=== PATIENT | female | born 1940 | race Caucasian/White ===

== ENCOUNTER 2018-02-03 12:38 | Inpatient (IN) | payer OTHER ==
[~2018-02-03] VITALS: Ht 167.6 cm; Wt 77.6 kg
[2018-02-03 12:38] VITALS: BP_SYST 148
[~2018-02-03 12:38] MED LIST: DIAZ10TA PO; HYDR-3610 PO; LEVO500T20 PO; LEVO88TA2 PO; SIMV10TA2 PO
[2018-02-03] MEDS ORDERED: NACL 0.9% 500 ML IV ONE (13:00)
[2018-02-03] MEDS ORDERED: NS 500 ML IV ONE (13:00)
[2018-02-03 13:27] LABS: BASOPHILS # (AUTO) 0.2 K/uL (0.0-0.2); BASOPHILS % (AUTO) 1.8 % (0.0-2.0); EOSINOPHILS # (AUTO) 0.2 K/uL (0.0-0.4); EOSINOPHILS % (AUTO) 1.8 % (0.0-4.0); HEMOGLOBIN 14.4 g/dL (12.0-16.0); LYMPHOCYTES # (AUTO) 4.6 K/uL (1.0-5.5); LYMPHOCYTES % (AUTO) 46.2 % (20.5-51.5); MEAN CORPUSCULAR HEMOGLOBIN 31 pg (27-31); MEAN CORPUSCULAR HGB CONC 34 % (32-36); MEAN CORPUSCULAR VOLUME 93 fL (79.0-98.0); MONOCYTES # (AUTO) 0.7 K/uL (0.0-1.0); MONOCYTES % (AUTO) 7.2 % (1.7-9.3); NEUTROPHILS # (AUTO) 4.3 K/uL (1.8-7.7); PLATELET COUNT (AUTO) 383 K/uL (130-430); RED BLOOD CELL COUNT(AUTO) 4.61 MIL/uL (4.2-6.2); RED CELL DISTRIBUTION WIDTH 12.7 % (9.0-15.0)
[2018-02-03 13:28] LABS: ANION GAP 9 (5-15); CALCIUM 9.5 mg/dL (8.4-11.0); CHLORIDE 106 mmol/L (98-107); CREATININE 0.89 mg/dL (0.55-1.30); GLUCOSE 126 mg/dL (70-99); POTASSIUM 4.6 mmol/L (3.5-5.1); SODIUM SERUM 143 mmol/L (136-145); UREA NITROGEN, BLOOD 13 mg/dL (8-21)
[2018-02-03 13:39] LABS: INR 1.1 (0.8-1.2); PROTHROMBIN TIME 10.8 SECS (9.5-12.5)
[2018-02-03 13:43] LABS: ALANINE AMINOTRANSFERASE 22 U/L (12-78); ALBUMIN 4.3 g/dL (3.4-4.8); ASPARTATE AMINOTRANSFERASE 11 U/L (10-37); TOTAL BILIRUBIN 0.5 mg/dL (0.0-1.0)
[2018-02-03 13:44] LABS: BILIRUBIN,URINE NEGATIVE (NEGATIVE); BLOOD, URINE NEGATIVE (NEGATIVE); CLARITY/URINE CLEAR (CLEAR); COLOR,URINE YELLOW (YELLOW); GLUCOSE,URINE NEGATIVE (NEGATIVE); KETONES,URINE NEGATIVE (NEGATIVE); LEUKOCYTE ESTERASE ,URINE 2+ (NEGATIVE); NITRITE, URINE NEGATIVE (NEGATIVE); PROTEIN URINE NEGATIVE (NEGATIVE); UROBILINOGEN,URINE 0.2 (0.2-1.0)
[2018-02-03 14:02] LABS: BACTERIA,URINE FEW /HPF (None Seen); YEAST,URINE None Seen /HPF (None Seen)
[2018-02-03 14:03] LABS: MUCUS,URINE None Seen /LPF (None Seen)
[2018-02-03] MEDS ORDERED: metroNIDAZOLE 500 mg/NS 100 ML IV ONE (17:15)
[2018-02-03] MEDS ORDERED: METO50TA7 PO (17:30)
[2018-02-03] MEDS ORDERED: BUDE6HFA INH (17:30)
[2018-02-03] MEDS ORDERED: ALBU0.63 NEB (17:30)
[2018-02-03 17:38] VITALS: BP_SYST 162
[2018-02-03] MEDS ORDERED: DIAZEPAM 5 MG TABLET (VALIUM) PO PRN (18:00)
[2018-02-03] MEDS ORDERED: ACETAMINOPHEN 650 MG/20.3 ML UDC PO PRN (18:15)
[2018-02-03 20:00] VITALS: BP_SYST 131
[2018-02-03] MEDS: METOPROLOL SUCCINATE 50 MG TAB.SR.24H (TOPROL XL) PO SCH (20:08)
[2018-02-03] MEDS: SIMVASTATIN 10 MG TABLET PO SCH (20:08)
[2018-02-03] MEDS: POTASSIUM CHLORIDE 10 MEQ in NACL 0.9% 1,000 ML IV SCH (20:11)
[2018-02-04] VITALS (7 sets, daily range): BP systolic 121–162
[2018-02-04] MEDS ORDERED: cefTRIAXone 1 GM IVPB PREMIX 100 ML IV ONE (04:26)
[2018-02-04] MEDS: LEVOTHYROXINE SODIUM 0.088 MG TABLET PO SCH (06:29)
[2018-02-04] MEDS: ALBUTEROL SULFATE 0.083% 2.5 MG/3 ML VIAL.NEB INH SCH ×4 (07:39→19:57)
[2018-02-04 07:43] LABS: BASOPHILS # (AUTO) 0.1 K/uL (0.0-0.2); BASOPHILS % (AUTO) 1.2 % (0.0-2.0); EOSINOPHILS # (AUTO) 0.4 K/uL (0.0-0.4); EOSINOPHILS % (AUTO) 3.7 % (0.0-4.0); HEMATOCRIT 37.7 % (36-48); HEMOGLOBIN 12.9 g/dL (12.0-16.0); LYMPHOCYTES # (AUTO) 4.8 K/uL (1.0-5.5); LYMPHOCYTES % (AUTO) 51.4 % (20.5-51.5); MEAN CORPUSCULAR HEMOGLOBIN 32 pg (27-31); MEAN CORPUSCULAR HGB CONC 34 % (32-36); MEAN CORPUSCULAR VOLUME 94 fL (79.0-98.0); MONOCYTES # (AUTO) 0.9 K/uL (0.0-1.0); NEUTROPHILS # (AUTO) 3.3 K/uL (1.8-7.7); NEUTROPHILS % (AUTO) 34.7 % (40.0-70.0); PLATELET COUNT (AUTO) 306 K/uL (130-430); RED BLOOD CELL COUNT(AUTO) 4.01 MIL/uL (4.2-6.2); RED CELL DISTRIBUTION WIDTH 12.8 % (9.0-15.0); WHITE BLOOD COUNT (AUTO) 9.5 K/uL (4.8-10.8)
[2018-02-04 08:04] LABS: ANION GAP 8 (5-15); CALCIUM 8.7 mg/dL (8.4-11.0); CHLORIDE 110 mmol/L (98-107); CREATININE 0.97 mg/dL (0.55-1.30); FREE T4 (FREE THYROXINE) 0.7 ng/dL (0.6-1.6); GLUCOSE 107 mg/dL (70-99); POTASSIUM 4.2 mmol/L (3.5-5.1); SODIUM SERUM 147 mmol/L (136-145); THYROID STIMULATING HORMONE 1.55 uIu/mL (0.34-4.82); UREA NITROGEN, BLOOD 12 mg/dL (8-21)
[2018-02-04] MEDS: POTASSIUM CHLORIDE 10 MEQ in NACL 0.9% 1,000 ML IV SCH ×2 (09:37→23:30)
[2018-02-04] MEDS: FLUTICASONE/VILANTEROL 1 EACH BLST.W.DEV INH SCH (09:37)
[2018-02-04] MEDS: METOPROLOL SUCCINATE 50 MG TAB.SR.24H (TOPROL XL) PO SCH ×2 (09:38→21:42)
[2018-02-04] MEDS: LACTOBACILLUS RHAMNOSUS GG 1 CAP CAPSULE PO SCH ×2 (12:00→21:41)
[2018-02-04] MEDS ORDERED: LACTOBACILLUS RHAMNOSUS GG 1 CAP CAPSULE PO ONE (12:30)
[2018-02-04] MEDS: metroNIDAZOLE 500 MG TABLET PO SCH ×2 (13:38→21:41)
[2018-02-04] MEDS: SIMVASTATIN 10 MG TABLET PO SCH (21:41)
[2018-02-05 00:28] VITALS: BP_SYST 179
[2018-02-05] MEDS: LEVOTHYROXINE SODIUM 0.088 MG TABLET PO SCH (06:20)
[2018-02-05] MEDS: metroNIDAZOLE 500 MG TABLET PO SCH ×3 (06:20→21:16)
[2018-02-05] MEDS: METOPROLOL SUCCINATE 50 MG TAB.SR.24H (TOPROL XL) PO SCH ×3 (06:22→21:24)
[2018-02-05] MEDS: LACTOBACILLUS RHAMNOSUS GG 1 CAP CAPSULE PO SCH ×2 (06:24→21:16)
[2018-02-05] MEDS: FLUTICASONE/VILANTEROL 1 EACH BLST.W.DEV INH SCH (07:00)
[2018-02-05 12:00] VITALS: BP_SYST 155
[2018-02-05] MEDS ORDERED: PANTOPRAZOLE GRANULES PACKET 40 MG GT ONE (13:15)
[2018-02-05] MEDS ORDERED: COMMUNICATION ORDER XX ONE (15:00)
[2018-02-05 16:00] VITALS: BP_SYST 179
[2018-02-05] MEDS ORDERED: cloNIDine HCL 0.1 MG TABLET PO PRN (17:15)
[2018-02-05 19:45] VITALS: BP_SYST 141
[2018-02-05] MEDS: ALBUTEROL SULFATE 0.083% 2.5 MG/3 ML VIAL.NEB INH SCH (21:00)
[2018-02-05] MEDS: PANTOPRAZOLE GRANULES PACKET 40 MG PO SCH ×2 (21:17→21:25)
[2018-02-05] MEDS: SIMVASTATIN 10 MG TABLET PO SCH (21:17)
[2018-02-06 01:39] VITALS: BP_SYST 120
[2018-02-06 06:00] VITALS: BP_SYST 140
[2018-02-06] MEDS: LEVOTHYROXINE SODIUM 0.088 MG TABLET PO SCH (06:25)
[2018-02-06] MEDS: metroNIDAZOLE 500 MG TABLET PO SCH (06:25)
[2018-02-06] MEDS: FLUTICASONE/VILANTEROL 1 EACH BLST.W.DEV INH SCH (07:00)
[2018-02-06 07:27] LABS: BASOPHILS # (AUTO) 0.1 K/uL (0.0-0.2); BASOPHILS % (AUTO) 1.3 % (0.0-2.0); EOSINOPHILS # (AUTO) 0.3 K/uL (0.0-0.4); EOSINOPHILS % (AUTO) 3.4 % (0.0-4.0); HEMATOCRIT 39.9 % (36-48); HEMOGLOBIN 13.5 g/dL (12.0-16.0); LYMPHOCYTES # (AUTO) 4.1 K/uL (1.0-5.5); LYMPHOCYTES % (AUTO) 42.2 % (20.5-51.5); MEAN CORPUSCULAR HEMOGLOBIN 32 pg (27-31); MEAN CORPUSCULAR HGB CONC 34 % (32-36); MEAN CORPUSCULAR VOLUME 94 fL (79.0-98.0); MONOCYTES # (AUTO) 0.8 K/uL (0.0-1.0); MONOCYTES % (AUTO) 8.5 % (1.7-9.3); NEUTROPHILS # (AUTO) 4.3 K/uL (1.8-7.7); NEUTROPHILS % (AUTO) 44.6 % (40.0-70.0); PLATELET COUNT (AUTO) 329 K/uL (130-430); RED BLOOD CELL COUNT(AUTO) 4.25 MIL/uL (4.2-6.2); RED CELL DISTRIBUTION WIDTH 12.6 % (9.0-15.0); WHITE BLOOD COUNT (AUTO) 9.6 K/uL (4.8-10.8)
[2018-02-06 07:46] LABS: ANION GAP 5 (5-15); CALCIUM 9.1 mg/dL (8.4-11.0); CHLORIDE 107 mmol/L (98-107); CREATININE 1.08 mg/dL (0.55-1.30); GLUCOSE 125 mg/dL (70-99); POTASSIUM 4.9 mmol/L (3.5-5.1); SODIUM SERUM 143 mmol/L (136-145); UREA NITROGEN, BLOOD 16 mg/dL (8-21)
[2018-02-06] MEDS: ALBUTEROL SULFATE 0.083% 2.5 MG/3 ML VIAL.NEB INH SCH ×2 (07:56→11:39)
[2018-02-06 08:00] VITALS: BP_SYST 145
[2018-02-06] MEDS ORDERED: METOPROLOL SUCCINATE 50 MG TAB.SR.24H (TOPROL XL) PO ONE (09:00)
[2018-02-06] MEDS: LACTOBACILLUS RHAMNOSUS GG 1 CAP CAPSULE PO SCH (09:02)
[2018-02-06 09:24] VITALS: BP_SYST 145
[2018-02-06 12:00] VITALS: BP_SYST 144
== END 2018-02-06 10:15 | disposition home health service (06) | DRG 690 ==
LOC: SED 12:38 → SMU 17:01
PROVIDERS: ADMIT Internal Medicine; ATTEND Internal Medicine
DX: N39.0 Urinary tract infection, site not specified (principal); E87.0 Hyperosmolality and hypernatremia; K52.9 Noninfective gastroenteritis and colitis, unspecified; B96.20 Unspecified Escherichia coli [E. coli] as the cause of diseases classified elsewhere; E03.9 Hypothyroidism, unspecified; E78.5 Hyperlipidemia, unspecified; J44.9 Chronic obstructive pulmonary disease, unspecified; Z60.2 Problems related to living alone; J45.909 Unspecified asthma, uncomplicated; K21.9 Gastro-esophageal reflux disease without esophagitis; E78.00 Pure hypercholesterolemia, unspecified; E86.0 Dehydration; F32.9 Major depressive disorder, single episode, unspecified; F41.9 Anxiety disorder, unspecified; I10 Essential (primary) hypertension; Z16.24 Resistance to multiple antibiotics; Z87.891 Personal history of nicotine dependence; Z90.710 Acquired absence of both cervix and uterus; Z88.0 Allergy status to penicillin; Z88.7 Allergy status to serum and vaccine; Z88.8 Allergy status to other drugs, medicaments and biological substances; Z91.041 Radiographic dye allergy status; Z86.73 Personal history of transient ischemic attack (TIA), and cerebral infarction without residual deficits; Z95.0 Presence of cardiac pacemaker; Z90.49 Acquired absence of other specified parts of digestive tract
CPT/HCPCS: 36415; 71045; 76700-TC; 80048; 80053; 81000-TC; 83605; 84439; 84443-TC; 84484; 85025; 85610-TC; 85730-TC; 87040-TC; 87045-TC; 87046; 87086; 89055; 93005; 94760; 96361; 96365; 97110-GP; 97116-GP; 97530-GP; 99285; J0696; J3480; J3490; J7030; J7060; J7613

== ENCOUNTER 2018-02-16 09:28 | Inpatient (IN) | payer OTHER ==
[~2018-02-16] VITALS: Ht 167.6 cm; Wt 77.1 kg
[~2018-02-16 09:28] MED LIST changes: +ALBU0.63 NEB; +BUDE6HFA INH; -HYDR-3610 PO; -LEVO500T20 PO; +METO50TA7 PO
[2018-02-16 09:39] VITALS: BP_SYST 118
[2018-02-16] MEDS ORDERED: NACL 0.9% 1,000 ML IV ONE (10:00)
[2018-02-16 10:35] LABS: BASOPHILS # (AUTO) 0.1 K/uL (0.0-0.2); BASOPHILS % (AUTO) 0.8 % (0.0-2.0); EOSINOPHILS # (AUTO) 0.2 K/uL (0.0-0.4); HEMATOCRIT 43.1 % (36-48); HEMOGLOBIN 14.5 g/dL (12.0-16.0); LYMPHOCYTES # (AUTO) 4.3 K/uL (1.0-5.5); LYMPHOCYTES % (AUTO) 43.8 % (20.5-51.5); MEAN CORPUSCULAR HEMOGLOBIN 31 pg (27-31); MEAN CORPUSCULAR HGB CONC 34 % (32-36); MEAN CORPUSCULAR VOLUME 93 fL (79.0-98.0); MONOCYTES # (AUTO) 0.8 K/uL (0.0-1.0); NEUTROPHILS # (AUTO) 4.4 K/uL (1.8-7.7); NEUTROPHILS % (AUTO) 45.4 % (40.0-70.0); PLATELET COUNT (AUTO) 348 K/uL (130-430); RED BLOOD CELL COUNT(AUTO) 4.63 MIL/uL (4.2-6.2); RED CELL DISTRIBUTION WIDTH 12.6 % (9.0-15.0); WHITE BLOOD COUNT (AUTO) 9.8 K/uL (4.8-10.8)
[2018-02-16 10:46] LABS: BILIRUBIN,URINE NEGATIVE (NEGATIVE); BLOOD, URINE NEGATIVE (NEGATIVE); CLARITY/URINE CLEAR (CLEAR); COLOR,URINE YELLOW (YELLOW); GLUCOSE,URINE NEGATIVE (NEGATIVE); KETONES,URINE NEGATIVE (NEGATIVE); LEUKOCYTE ESTERASE ,URINE TRACE (NEGATIVE); NITRITE, URINE NEGATIVE (NEGATIVE); PROTEIN URINE NEGATIVE (NEGATIVE); UROBILINOGEN,URINE 0.2 (0.2-1.0)
[2018-02-16 10:49] LABS: ANION GAP 7 (5-15); CALCIUM 9.3 mg/dL (8.4-11.0); CHLORIDE 101 mmol/L (98-107); CREATININE 1.15 mg/dL (0.55-1.30); GLUCOSE 119 mg/dL (70-99); POTASSIUM 4.3 mmol/L (3.5-5.1); SODIUM SERUM 139 mmol/L (136-145); UREA NITROGEN, BLOOD 12 mg/dL (8-21)
[2018-02-16 10:53] LABS: ALANINE AMINOTRANSFERASE 20 U/L (12-78); ALBUMIN 4.2 g/dL (3.4-4.8); ASPARTATE AMINOTRANSFERASE 8 U/L (10-37); LIPASE 104 U/L (73-393); TOTAL BILIRUBIN 0.4 mg/dL (0.0-1.0)
[2018-02-16 11:01] LABS: BACTERIA,URINE FEW /HPF (None Seen); MUCUS,URINE None Seen /LPF (None Seen); RBC,URINE 0-3 /HPF (0-3)
[2018-02-16 13:13] VITALS: BP_SYST 147
[2018-02-16] MEDS ORDERED: LEVOFLOXACIN 500 MG/D5W 100 ML IV ONE (13:45)
[2018-02-16] MEDS ORDERED: METOCLOPRAMIDE HCL 10 MG/2 ML VIAL IVP PRN (13:45)
[2018-02-16] MEDS ORDERED: ONDANSETRON HCL 4 MG/2 ML VIAL IVP PRN (13:45)
[2018-02-16 14:26] VITALS: BP_SYST 147
[2018-02-16] MEDS: D5NS 1,000 ML IV SCH ×2 (15:30→15:34)
[2018-02-16] MEDS: metroNIDAZOLE 500 mg/NS 100 ML IV SCH ×2 (16:10→21:14)
[2018-02-16 20:00] VITALS: BP_SYST 119
[2018-02-16 21:29] VITALS: BP_SYST 119
[2018-02-16] MEDS ORDERED: DIAZEPAM 5 MG TABLET (VALIUM) PO PRN (21:30)
[2018-02-17 01:38] VITALS: BP_SYST 141
[2018-02-17] MEDS: D5NS 1,000 ML IV SCH ×2 (05:59→16:15)
[2018-02-17] MEDS: metroNIDAZOLE 500 mg/NS 100 ML IV SCH (06:00)
[2018-02-17] MEDS: LEVOTHYROXINE SODIUM 0.088 MG TABLET PO SCH (07:02)
[2018-02-17 08:00] VITALS: BP_SYST 142
[2018-02-17] MEDS: PSYLLIUM HUSK 1 PKT PACKET PO SCH ×2 (09:00→09:03)
[2018-02-17] MEDS ORDERED: LEVOFLOXACIN 250 MG/D5W 50 ML IV SCH (09:00)
[2018-02-17] MEDS: METOPROLOL SUCCINATE 50 MG TAB.SR.24H (TOPROL XL) PO SCH ×2 (09:03→20:55)
[2018-02-17] MEDS: LACTOBACILLUS RHAMNOSUS GG 1 CAP CAPSULE PO SCH (09:03)
[2018-02-17 12:40] VITALS: BP_SYST 141
[2018-02-17 16:30] VITALS: BP_SYST 144
[2018-02-17] MEDS ORDERED: SIMVASTATIN 10 MG TABLET PO SCH (21:00)
[2018-02-17] MEDS: ALBUTEROL SULFATE 0.083% 2.5 MG/3 ML VIAL.NEB INH PRN (21:11)
[2018-02-17 22:33] VITALS: BP_SYST 154
[2018-02-18 00:38] VITALS: BP_SYST 154
[2018-02-18] MEDS: D5NS 1,000 ML IV SCH (05:35)
[2018-02-18] MEDS: LEVOTHYROXINE SODIUM 0.088 MG TABLET PO SCH (06:11)
[2018-02-18 08:00] VITALS: BP_SYST 145
[2018-02-18] MEDS ORDERED: SIMETHICONE 80 MG TAB.CHEW PO PRN (08:00)
[2018-02-18] MEDS: ALBUTEROL SULFATE 0.083% 2.5 MG/3 ML VIAL.NEB INH PRN (08:05)
[2018-02-18] MEDS: PSYLLIUM HUSK 1 PKT PACKET PO SCH (09:00)
[2018-02-18] MEDS: LACTOBACILLUS RHAMNOSUS GG 1 CAP CAPSULE PO SCH (09:36)
[2018-02-18] MEDS: METOPROLOL SUCCINATE 50 MG TAB.SR.24H (TOPROL XL) PO SCH (09:37)
== END 2018-02-18 10:50 | disposition home or self-care (01) | DRG 392 ==
LOC: SED 09:28 → SMU 12:40
PROVIDERS: ADMIT Internal Medicine Hospice and Palliative Medicine; ATTEND Internal Medicine Hospice and Palliative Medicine
DX: K58.0 Irritable bowel syndrome with diarrhea (principal); I10 Essential (primary) hypertension; E03.9 Hypothyroidism, unspecified; J44.9 Chronic obstructive pulmonary disease, unspecified; E78.00 Pure hypercholesterolemia, unspecified; K58.2 Mixed irritable bowel syndrome; Z90.710 Acquired absence of both cervix and uterus; Z87.440 Personal history of urinary (tract) infections; Z88.7 Allergy status to serum and vaccine; Z90.49 Acquired absence of other specified parts of digestive tract; Z88.1 Allergy status to other antibiotic agents; Z88.0 Allergy status to penicillin; Z88.8 Allergy status to other drugs, medicaments and biological substances; Z79.899 Other long term (current) drug therapy
CPT/HCPCS: 36415; 74021; 80053; 81000-TC; 83690-TC; 85025; 87081; 87177; 87230-TC; 89055; 94640; 94760; 99285; J1956; J3490; J7042; J7613

== ENCOUNTER 2022-06-13 15:02 | Inpatient (IN) | payer OTHER ==
[~2022-06-13] VITALS: Ht 167.6 cm; Wt 68.9 kg
[~2022-06-13 15:02] MED LIST changes: +LEVO-62 PO; +PRED10TA PO; +SIMV-341 PO; -SIMV10TA2 PO
[2022-06-13 15:05] VITALS: BP_SYST 117
--- NOTE | 2022-06-13 15:24 | NUR ---
Patient to ER bed 06 to gown for evaluation. Side rails up.
[2022-06-13 16:11] LABS: BASOPHILS # (AUTO) 0.1 K/uL (0.0-0.2); BASOPHILS % (AUTO) 0.6 % (0.0-2.0); EOSINOPHILS # (AUTO) 0.4 K/uL (0.0-0.4); EOSINOPHILS % (AUTO) 1.9 % (0.0-4.0); HEMATOCRIT 39.8 % (36-48); HEMOGLOBIN 13.4 g/dL (12.0-16.0); LYMPHOCYTES # (AUTO) 3.9 K/uL (1.0-5.5); LYMPHOCYTES % (AUTO) 18.4 % (20.5-51.5); MEAN CORPUSCULAR HEMOGLOBIN 30 pg (27-31); MEAN CORPUSCULAR HGB CONC 34 % (32-36); MEAN CORPUSCULAR VOLUME 89 fL (79.0-98.0); MONOCYTES # (AUTO) 1.5 K/uL (0.0-1.0); MONOCYTES % (AUTO) 6.9 % (1.7-9.3); NEUTROPHILS # (AUTO) 15.2 K/uL (1.8-7.7); NEUTROPHILS % (AUTO) 72.2 % (40.0-70.0); PLATELET COUNT (AUTO) 592 K/uL (130-430); RED BLOOD CELL COUNT(AUTO) 4.49 MIL/uL (4.2-6.2); RED CELL DISTRIBUTION WIDTH 13.4 % (9.0-15.0); WHITE BLOOD COUNT (AUTO) 21.1 K/uL (4.8-10.8)
[2022-06-13 16:19] LABS: ANION GAP 6 (5-15); CALCIUM 11.2 mg/dL (8.4-11.0); CHLORIDE 101 mmol/L (98-107); CREATININE 1.45 mg/dL (0.55-1.30); GLUCOSE 124 mg/dL (70-99); UREA NITROGEN, BLOOD 25 mg/dL (8-21)
[2022-06-13 16:25] LABS: ALANINE AMINOTRANSFERASE 14 U/L (12-78); ALBUMIN 3.5 g/dL (3.4-4.8); AMYLASE 80 U/L (0-100); ASPARTATE AMINOTRANSFERASE 7 U/L (10-37); C-REACTIVE PROTEIN QUANT 6.7 mg/dL (0-0.5); LIPASE 147 U/L (73-393); TOTAL BILIRUBIN 0.3 mg/dL (0.0-1.0)
[2022-06-13] MEDS ORDERED: DOCUSATE SODIUM 100 MG CAPSULE PO PRN (18:00)
[2022-06-13] MEDS ORDERED: MAGNESIUM SULFATE 50 ML IV PRN (18:00)
[2022-06-13] MEDS ORDERED: MORPHINE 2 MG/ML INJ. SYRINGE IVP PRN ×2 (18:00)
[2022-06-13] MEDS ORDERED: POTASSIUM CHLORIDE 20 MEQ TAB.PRT.SR PO PRN (18:00)
[2022-06-13] MEDS ORDERED: ONDANSETRON HCL 4 MG/2 ML VIAL IVP PRN (18:00)
[2022-06-13] MEDS ORDERED: MUPIROCIN 2% TOPICAL OINTMENT 22 GM NS PRN (18:00)
--- NOTE | 2022-06-13 18:11 | NUR ---
PT PRESENT TO ED ACCOMPANIED BY CAREGIVER WITH COMPLAINT OF RIGHT FLANK PAIN. AOX4 GCS [address] PT SELF AMBULATED WITHOUT ASSISTANCE. ED PHYSICIAN EVALUATED PT AT BEDSIDE.
--- NOTE | 2022-06-13 18:13 | NUR ---
Admit bed requested Patient will be admitted to care of . Admitted to MED SURG unit. Diagnosis AYUSH, ABDOMINAL PAIN Inpatient (Yes or No) Y Observation (Yes or No) N Orientation concerns or request close to nursing station (Yes or No) N Covid Status On vent or bipap NO Isolation requirements NO Needs a sitter NO From Home (Yes or if No enter name of facility) YES Requires Dialysis (Yes or No) NO Med Rec Completed (Yes of No) YES
[2022-06-13] MEDS ORDERED: ACETAMINOPHEN 325 MG TABLET PO PRN (18:15)
[2022-06-13] MEDS ORDERED: ALBUTEROL SULFATE 0.083% 2.5 MG/3 ML VIAL.NEB INH ONE (19:15)
[2022-06-13] MEDS ORDERED: IPRATROPIUM BROM 0.5 MG/2.5 ML VIAL.NEB (ATROVENT) INH ONE (19:15)
--- NOTE | 2022-06-13 19:43 | NUR ---
Patient will be admitted to care of MD Ji. Admitted to MED SURG unit. Will go to room 114B. Complete and up to date summary report printed. SBAR report given at bedside to DAVID Foster with opportunity for questions.
[2022-06-13 20:00] VITALS: BP_SYST 141
--- NOTE | 2022-06-13 20:00 | NUR ---
Admission Note Received patient from ER with diagnosis of AYUSH, ABDOMINAL PAIN. Initial Plan of Care discussed-patient verbalized understanding. Oriented to room, call light, pain management and safety.
[2022-06-13 20:47] VITALS: BP_SYST 149
[2022-06-13 20:51] VITALS: BP_SYST 141
--- NOTE | 2022-06-13 20:57 | NUR ---
SPOKE WITH MD MANN MADE AWARE PT IS ANXIOUS ENDORSES SHE NEEDS HER PREDNISONE AND DIAZEPAM MEDICATIONS REORDERED NOTED AND WILL CARRY OUT
[2022-06-13] MEDS: predniSONE 10 MG TABLET PO SCH (22:00)
[2022-06-13] MEDS: METOPROLOL SUCCINATE 50 MG TAB.SR.24H (TOPROL XL) PO SCH (22:37)
[2022-06-13] MEDS: SIMVASTATIN 10 MG TABLET PO SCH (22:38)
[2022-06-13] MEDS: DIAZEPAM 5 MG TABLET (VALIUM) PO PRN (22:38)
[2022-06-13] MEDS: ACETAMINOPHEN 325 MG TABLET PO PRN (22:44)
[2022-06-14] VITALS: BP_SYST 126
--- NOTE | 2022-06-14 00:59 | NUR ---
PT ADMISSION ASSESSMENT COMPLETED PLAN OF CARE REVIEWED PT SKIN DRY AND INTACT PT AMBULATORY PT SOME WHAT WORRIED ABOUT PTOGNOSIS OF CARE PT MADE AWARE MD WOULD ROUND IN MORNING TO GIVE STATUS ON PROGNOSIS AND PLAN OF CARE PT EDUCATED ON ALL MEDICATIONS AND ASSURED NURSING WILL ROUND HOURLY CALL LIGHT PLACED IN REACH AND PT MADE AWRE TO CALL FOR ALL NEEDS UNDERSTANDING VERBALIZED WILL CONTINUE TO MONIOTR AND ASSESS
--- NOTE | 2022-06-14 03:10 | NUR ---
CONSULTATION PAGED/CALLED Reason for Consultation: CELLULITIS Person Who was Notified:MACKNEZIE Consulting Physician: VELASQUEZ Felled Seam Operator Chainstitch Specialty: Ordering Physician: MACKENZIE
--- NOTE | 2022-06-14 03:13 | NUR ---
CONSULTATION PAGED/CALLED Reason for Consultation: ADRENAL MASS Person Who was Notified:ANURAG Consulting Physician: GOKUL Sales Clerk Food Specialty: Ordering Physician: MACKENZIE
[2022-06-14] MEDS: LEVOTHYROXINE SODIUM 0.088 MG TABLET PO SCH (06:25)
[2022-06-14 07:01] LABS: BASOPHILS # (AUTO) 0.1 K/uL (0.0-0.2); BASOPHILS % (AUTO) 0.6 % (0.0-2.0); EOSINOPHILS # (AUTO) 0.1 K/uL (0.0-0.4); EOSINOPHILS % (AUTO) 0.5 % (0.0-4.0); HEMATOCRIT 36.7 % (36-48); HEMOGLOBIN 12.4 g/dL (12.0-16.0); LYMPHOCYTES # (AUTO) 2.9 K/uL (1.0-5.5); MEAN CORPUSCULAR HEMOGLOBIN 30 pg (27-31); MEAN CORPUSCULAR HGB CONC 34 % (32-36); MEAN CORPUSCULAR VOLUME 88 fL (79.0-98.0); MONOCYTES # (AUTO) 0.8 K/uL (0.0-1.0); MONOCYTES % (AUTO) 3.9 % (1.7-9.3); NEUTROPHILS # (AUTO) 16.7 K/uL (1.8-7.7); PLATELET COUNT (AUTO) 527 K/uL (130-430); RED BLOOD CELL COUNT(AUTO) 4.16 MIL/uL (4.2-6.2); RED CELL DISTRIBUTION WIDTH 13.6 % (9.0-15.0); WHITE BLOOD COUNT (AUTO) 20.6 K/uL (4.8-10.8)
[2022-06-14 07:29] LABS: ANION GAP 4 (5-15); CALCIUM 10.2 mg/dL (8.4-11.0); CHLORIDE 101 mmol/L (98-107); GLUCOSE 138 mg/dL (70-99); UREA NITROGEN, BLOOD 24 mg/dL (8-21)
[2022-06-14] MEDS: ALBUTEROL SULFATE 0.083% 2.5 MG/3 ML VIAL.NEB INH SCH ×3 (07:49→19:02)
[2022-06-14] MEDS: BUDESONIDE 0.5 MG/2 ML AMPUL.NEB INH SCH ×2 (07:49→19:19)
--- NOTE | 2022-06-14 07:58 | NUR ---
OPENING NOTE RECEIVED BEDSIDE SBAR FORM PM SHIFT NURSE, PATIENT IS STABLE NO DISTRESS, BED AT LOW POSITION CALL LIGHT IN REACH WILL CONT TO MONITOR PER ORDERS NPO AT THIS TIME.
[2022-06-14 08:01] VITALS: BP_SYST 132
[2022-06-14] MEDS ORDERED: BUDESONIDE/FORMOTEROL 160-4.5 mCg, 6 GM INHALER INH SCH (09:00)
[2022-06-14] MEDS: METOPROLOL SUCCINATE 50 MG TAB.SR.24H (TOPROL XL) PO SCH ×2 (09:00→20:57)
[2022-06-14] MEDS: predniSONE 10 MG TABLET PO SCH ×2 (09:00→20:57)
[2022-06-14] MEDS ORDERED: SODIUM ZIRCONIUM CYCLOSILICATE 10 GM POWD.PACK PO ONE (09:00)
[2022-06-14] MEDS ORDERED: LORazepam 2 MG/ML VIAL IVP ONE (10:00)
--- NOTE | 2022-06-14 11:08 | NUR ---
PATIENT IS TO GO TO MRI NPO, PATIENT ASKED TO CANCELL AND DO TOMORROW SO SHE COULD EAT. PAGED DOCTOR HE STATED NO IT NEED TO BE DONE TODAY, MRI CLOSED TOMORROW. PATIENT ASKED FOR SOMETHING TO CALM NERVE DOWN RECEIVED ORDER FOR ATIVAN 1MG IV PUSH 1 TIME, PATIENT REFUSED MED. PATIENT WAS THEN TAKEN TO MRI, REFUSED TO DO TEST AT THIS TIME. WILL PAGED DOCTOR
[2022-06-14 11:40] VITALS: BP_SYST 133
[2022-06-14] MEDS ORDERED: CALCIUM GLUCONATE 1 GM in NS 100 ML IV ONE (12:00)
--- NOTE | 2022-06-14 12:30 | NUR ---
ROUNDS PATIENT REMAINS STABLE NO DISTRESS CALL LIGHT IN REACH BED AT LOW POSITION FAMILY AT BEDSIDE WILL CONT TO MONITOR PER ORDERS.
--- NOTE | 2022-06-14 12:55 | NUR ---
PATIENT KNOW WHATS TO GO TO MRI, WILL CALL MRI TO SEE IF THEY CAN STILL TAKE HER
[2022-06-14 15:20] VITALS: BP_SYST 126
[2022-06-14 15:33] VITALS: BP_SYST 132
--- NOTE | 2022-06-14 17:25 | NUR ---
change of rn assignment was done , with admitting diagnosis adminal pain aox4 . still npo from magnetic resonance due abdominal aortic aneurysm no complain of pain at this time . nosign and symptoms of respiratory distress . will continue to monitor
--- NOTE | 2022-06-14 18:21 | NUR ---
will endorse to shift lab technician rn for continuity of care
--- NOTE | 2022-06-14 19:35 | NUR ---
INITIAL NOTE AT INITIAL ASSESSMENT, PATIENT IS RESTING IN BED, STABLE, NO SIGNS OF RESPIRATORY DISTRESS. PATIENT VERBALIZES NO PAIN. PLAN OF CARE FOR THE EVENING IS COMMUNICATED WITH PATIENT. CALL LIGHT TEACH BACK IS SUCCESSFUL. BED IS LOCKED, AND AT THE LOWEST LEVEL. FALL AND SAFETY PRECAUTIONS WILL BE IN PLACE THROUGHOUT THE SHIFT.
[2022-06-14 19:40] VITALS: BP_SYST 130
[2022-06-14] MEDS: SIMVASTATIN 10 MG TABLET PO SCH (20:57)
[2022-06-14] MEDS: DIAZEPAM 5 MG TABLET (VALIUM) PO PRN (21:09)
--- NOTE | 2022-06-14 23:15 | NUR ---
PATIENT AMBULATED TO THE RESTROOM PATIENT AMBULATED TO THE RESTROOM AT THIS TIME WITHOUT ASSISTANCE NECESSARY. SHE TOLERATED HER TRIP WELL.
[2022-06-15] MEDS: ALBUTEROL SULFATE 0.083% 2.5 MG/3 ML VIAL.NEB INH SCH ×4 (01:00→21:15)
[2022-06-15 01:01] VITALS: BP_SYST 133
--- NOTE | 2022-06-15 03:10 | NUR ---
ROUNDS PATIENT IS SLEEPING, STABLE, NO SIGNS OF RESPIRATORY DISTRESS.
--- NOTE | 2022-06-15 06:26 | NUR ---
CLOSING NOTE PATIENT VERBALIZED ONLY 2/10 RIGHT SIDED ABDOMINAL PAIN DURING THE NIGHT, SHE DID NOT WANT ANY PAIN MEDICATION FOR HER PAIN. SHE SLEPT WELL THROUGHOUT THE NIGHT. CALL LIGHT IS WITHIN REACH. BED IS LOCKED, AND AT THE LOWEST LEVEL. FALL, SAFETY, AND ASPIRATION PRECAUTIONS HAVE BEEN IN PLACE THROUGHOUT THE SHIFT. WILL CONTINUE TO MONITOR UNTIL REPORT IS GIVEN AT BEDSIDE TO AM NURSE.
--- NOTE | 2022-06-15 06:27 | NUR ---
Per nurse request to collect urine specimen for patient. Day shift SILVERWARE SUPERVISOR informed and aware of collection needed. Patient advised use the urine "Hat" to collect specimen and inform nurse or SILVERWARE SUPERVISOR of the collection. Pt understood and agreed.
--- NOTE | 2022-06-15 07:00 | NUR ---
Report received from nightshift RN for continuity of care. Patient in stable condition. No distress noted.
[2022-06-15] MEDS: LEVOTHYROXINE SODIUM 0.088 MG TABLET PO SCH (07:03)
[2022-06-15] MEDS: BUDESONIDE 0.5 MG/2 ML AMPUL.NEB INH SCH ×2 (07:30→21:15)
[2022-06-15 07:43] LABS: BASOPHILS # (AUTO) 0.1 K/uL (0.0-0.2); BASOPHILS % (AUTO) 0.5 % (0.0-2.0); EOSINOPHILS # (AUTO) 0.1 K/uL (0.0-0.4); EOSINOPHILS % (AUTO) 0.3 % (0.0-4.0); HEMATOCRIT 38.3 % (36-48); HEMOGLOBIN 12.9 g/dL (12.0-16.0); LYMPHOCYTES # (AUTO) 3.6 K/uL (1.0-5.5); LYMPHOCYTES % (AUTO) 15.5 % (20.5-51.5); MEAN CORPUSCULAR HEMOGLOBIN 30 pg (27-31); MEAN CORPUSCULAR HGB CONC 34 % (32-36); MEAN CORPUSCULAR VOLUME 88 fL (79.0-98.0); MONOCYTES # (AUTO) 1.1 K/uL (0.0-1.0); MONOCYTES % (AUTO) 4.8 % (1.7-9.3); NEUTROPHILS # (AUTO) 18.2 K/uL (1.8-7.7); NEUTROPHILS % (AUTO) 78.9 % (40.0-70.0); PLATELET COUNT (AUTO) 549 K/uL (130-430); RED BLOOD CELL COUNT(AUTO) 4.36 MIL/uL (4.2-6.2); RED CELL DISTRIBUTION WIDTH 13.8 % (9.0-15.0); WHITE BLOOD COUNT (AUTO) 23.1 K/uL (4.8-10.8)
[2022-06-15 08:06] VITALS: BP_SYST 140
[2022-06-15 08:06] LABS: ANION GAP 5 (5-15); CHLORIDE 100 mmol/L (98-107); CREATININE 1.17 mg/dL (0.55-1.30); GLUCOSE 133 mg/dL (70-99); UREA NITROGEN, BLOOD 21 mg/dL (8-21)
[2022-06-15] MEDS: METOPROLOL SUCCINATE 50 MG TAB.SR.24H (TOPROL XL) PO SCH ×2 (09:28→20:48)
[2022-06-15] MEDS: predniSONE 10 MG TABLET PO SCH ×2 (09:28→20:49)
--- NOTE | 2022-06-15 10:52 | NUR ---
RD Recommendations *Continue regular diet *Encourage good PO *Consider Ensure ONS if PO intake decreases GS, RD Please refer to RD Assessment for full details Addendum: 06/15/22 at [address] Amended: Links added.
[2022-06-15 11:28] VITALS: BP_SYST 148
[2022-06-15] MEDS: LORazepam 2 MG/ML VIAL IVP PRN (12:26)
[2022-06-15 12:33] LABS: BILIRUBIN,URINE NEGATIVE (NEGATIVE); BLOOD, URINE NEGATIVE (NEGATIVE); CLARITY/URINE CLEAR (CLEAR); COLOR,URINE YELLOW (YELLOW); GLUCOSE,URINE NEGATIVE (NEGATIVE); KETONES,URINE NEGATIVE (NEGATIVE); LEUKOCYTE ESTERASE ,URINE NEGATIVE (NEGATIVE); NITRITE, URINE NEGATIVE (NEGATIVE); PROTEIN URINE NEGATIVE (NEGATIVE); UROBILINOGEN,URINE 0.2 (0.2-1.0)
[2022-06-15 15:34] VITALS: BP_SYST 139
[2022-06-15 19:00] VITALS: BP_SYST 130
--- NOTE | 2022-06-15 19:21 | NUR ---
Report given to nightshift RN for continuity of care. Patient in stable condition. No distress noted.
[2022-06-15 20:45] VITALS: BP_SYST 137
[2022-06-15] MEDS: SIMVASTATIN 10 MG TABLET PO SCH (20:48)
[2022-06-15] MEDS: DIAZEPAM 5 MG TABLET (VALIUM) PO PRN (21:00)
[2022-06-16] VITALS (8 sets, daily range): BP systolic 111–135
[2022-06-16] MEDS: ALBUTEROL SULFATE 0.083% 2.5 MG/3 ML VIAL.NEB INH SCH ×4 (04:28→19:15)
--- NOTE | 2022-06-16 07:00 | NUR ---
Report received from field training manager RN for continuity of care. Patient in stable condition.
--- NOTE | 2022-06-16 07:12 | NUR ---
PATIENT COMPLAINED OF DISTRESS LAST NIGHT BUT WAS SATURATING AT 95 AND RESPIRATORY WAS NOTIFIED AND BREATHING TREATMENT WAS GIVEN, SHE IS STABLE AT THIS TIME, TO ENDORSE TO ONCOMING SHIFT FOR CONTINUITY OF CARE.
[2022-06-16 07:21] LABS: BASOPHILS # (AUTO) 0.1 K/uL (0.0-0.2); BASOPHILS % (AUTO) 0.4 % (0.0-2.0); EOSINOPHILS % (AUTO) 0.2 % (0.0-4.0); HEMATOCRIT 38.3 % (36-48); HEMOGLOBIN 12.7 g/dL (12.0-16.0); LYMPHOCYTES # (AUTO) 2.9 K/uL (1.0-5.5); LYMPHOCYTES % (AUTO) 13.3 % (20.5-51.5); MEAN CORPUSCULAR HEMOGLOBIN 29 pg (27-31); MEAN CORPUSCULAR HGB CONC 33 % (32-36); MEAN CORPUSCULAR VOLUME 89 fL (79.0-98.0); MONOCYTES % (AUTO) 4.7 % (1.7-9.3); NEUTROPHILS # (AUTO) 17.5 K/uL (1.8-7.7); NEUTROPHILS % (AUTO) 81.4 % (40.0-70.0); PLATELET COUNT (AUTO) 555 K/uL (130-430); RED BLOOD CELL COUNT(AUTO) 4.32 MIL/uL (4.2-6.2); RED CELL DISTRIBUTION WIDTH 13.6 % (9.0-15.0); WHITE BLOOD COUNT (AUTO) 21.5 K/uL (4.8-10.8)
[2022-06-16] MEDS: BUDESONIDE 0.5 MG/2 ML AMPUL.NEB INH SCH ×2 (07:32→19:30)
[2022-06-16 07:44] LABS: ANION GAP 5 (5-15); CHLORIDE 102 mmol/L (98-107); GLUCOSE 139 mg/dL (70-99); UREA NITROGEN, BLOOD 20 mg/dL (8-21)
[2022-06-16] MEDS: predniSONE 10 MG TABLET PO SCH ×2 (10:11→20:28)
[2022-06-16] MEDS: METOPROLOL SUCCINATE 50 MG TAB.SR.24H (TOPROL XL) PO SCH ×2 (10:11→20:29)
[2022-06-16] MEDS: LEVOTHYROXINE SODIUM 0.088 MG TABLET PO SCH (11:04)
[2022-06-16] MEDS: ACETAMINOPHEN 325 MG TABLET PO PRN (11:05)
[2022-06-16] MEDS: LORazepam 2 MG/ML VIAL IVP PRN (19:05)
--- NOTE | 2022-06-16 19:18 | NUR ---
REPORT GIVEN TO BOX FEEDER RN FOR CONTINUITY OF CARE. PATIENT IN STABLE CONDITION.
[2022-06-16] MEDS: SIMVASTATIN 10 MG TABLET PO SCH (20:29)
[2022-06-16] MEDS: DIAZEPAM 5 MG TABLET (VALIUM) PO PRN (20:44)
[2022-06-17 00:33] VITALS: BP_SYST 125
[2022-06-17] MEDS: ALBUTEROL SULFATE 0.083% 2.5 MG/3 ML VIAL.NEB INH SCH ×4 (01:15→19:30)
[2022-06-17 04:00] VITALS: BP_SYST 130
--- NOTE | 2022-06-17 06:53 | NUR ---
Patient awaits bed approval to [facility] so she gets transferred, she denies any pain or discomfort at this time. To endorse to oncoming shift for continuity of care
[2022-06-17] MEDS: BUDESONIDE 0.5 MG/2 ML AMPUL.NEB INH SCH ×2 (07:00→19:00)
[2022-06-17 07:14] LABS: BASOPHILS % (AUTO) 0.2 % (0.0-2.0); EOSINOPHILS # (AUTO) 0.2 K/uL (0.0-0.4); EOSINOPHILS % (AUTO) 0.7 % (0.0-4.0); HEMATOCRIT 37.9 % (36-48); HEMOGLOBIN 12.7 g/dL (12.0-16.0); LYMPHOCYTES # (AUTO) 2.9 K/uL (1.0-5.5); LYMPHOCYTES % (AUTO) 11.8 % (20.5-51.5); MEAN CORPUSCULAR HEMOGLOBIN 30 pg (27-31); MEAN CORPUSCULAR HGB CONC 33 % (32-36); MEAN CORPUSCULAR VOLUME 89 fL (79.0-98.0); MONOCYTES # (AUTO) 1.5 K/uL (0.0-1.0); MONOCYTES % (AUTO) 6.2 % (1.7-9.3); NEUTROPHILS # (AUTO) 19.6 K/uL (1.8-7.7); NEUTROPHILS % (AUTO) 81.1 % (40.0-70.0); PLATELET COUNT (AUTO) 566 K/uL (130-430); RED BLOOD CELL COUNT(AUTO) 4.24 MIL/uL (4.2-6.2); RED CELL DISTRIBUTION WIDTH 13.8 % (9.0-15.0); WHITE BLOOD COUNT (AUTO) 24.1 K/uL (4.8-10.8)
[2022-06-17 07:47] VITALS: BP_SYST 123
[2022-06-17 08:23] LABS: ANION GAP 7 (5-15); CALCIUM 10.8 mg/dL (8.4-11.0); CHLORIDE 100 mmol/L (98-107); CREATININE 1.28 mg/dL (0.55-1.30); GLUCOSE 130 mg/dL (70-99); UREA NITROGEN, BLOOD 25 mg/dL (8-21)
[2022-06-17] MEDS ORDERED: ALBUTEROL SULFATE 0.083% 2.5 MG/3 ML VIAL.NEB INH PRN (08:45)
[2022-06-17] MEDS: ACETAMINOPHEN 325 MG TABLET PO PRN (09:36)
[2022-06-17] MEDS: LEVOTHYROXINE SODIUM 0.088 MG TABLET PO SCH (09:36)
[2022-06-17] MEDS: predniSONE 10 MG TABLET PO SCH ×2 (09:36→21:05)
[2022-06-17] MEDS: METOPROLOL SUCCINATE 50 MG TAB.SR.24H (TOPROL XL) PO SCH ×2 (09:37→21:06)
[2022-06-17 11:44] VITALS: BP_SYST 144
--- NOTE | 2022-06-17 12:01 | NUR ---
Spoke with MIHAI Mcdonald regarding patient transfer to facility and Tamara spoke with son regarding outpatient appointment for [facility] and son to take patient from [facility] to [facility] for follow up. NISHA Meza and Dr. Manuel lu.
--- NOTE | 2022-06-17 12:17 | NUR ---
Spoke w/ patient and her son at bedside. The patient refused DC to [facility]-she agreed to DC to [facility]. Dr Jackson was notified and agreed to DC to [facility]. The patient's son was given the telephone # to make an appt for evaluation at [facility]. He stated he would make the appt at [facility]. I advised him to transport his mother to the appt so he could meet the MD at the appt and discuss his mother's plan of care.
--- NOTE | 2022-06-17 13:20 | NUR ---
Discharge Planning: EASTON faxed pt referral to [facility] [phone]. DANIELP to follow up Addendum: 06/17/22 at 1451 by Laura Kovacs DP EASTON arranged transport with [facility] [phone] BLS 6:30pm to [facility] [phone] Rm 2A, EASTON made nurse and CM aware. Patient packet taken to nurse station.
[2022-06-17 14:37] VITALS: BP_SYST 136
[2022-06-17 15:35] VITALS: BP_SYST 143
--- NOTE | 2022-06-17 16:01 | NUR ---
Report given to DAVID Dahl at [facility] for continuity of care. Patient in stable condition. No distress noted. Patient's vital signs stable. Patient able to move around in bed. Patient accepts to go to [facility]. Notified patient's family member Lion regarding transfer status. Will continue to monitor. garbage collector supervisor time at ambulance at 6:30 pm.
--- NOTE | 2022-06-17 19:14 | NUR ---
Report given to assistant shift supervisor RN for continuity of care. Patient in stable condition. No distress noted. Called [facility] and they said ETA is at around 8:30 pm.
--- NOTE | 2022-06-17 19:33 | NUR ---
Called [facility] to inform that patient to be going to facility via ambulance at 8:30 pm. Patient aware of transport.
[2022-06-17] MEDS: SIMVASTATIN 10 MG TABLET PO SCH (21:05)
[2022-06-17] MEDS: DIAZEPAM 5 MG TABLET (VALIUM) PO PRN (21:05)
--- NOTE | 2022-06-17 23:15 | NUR ---
PATIENT WAS PICKED UP AT 2130 VIA AMBULANCE TO BE TAKEN TO [facility], SHE WAS STABLE THOUGH ANXIOUS, REPORT GIVEN TO MIRI , ALL HER PROPERTY WAS TAKEN.
== END 2022-06-17 21:47 | DRG 644 ==
LOC: SED 15:02 → SMU 17:52
PROVIDERS: ADMIT Family Medicine; ATTEND Family Medicine
DX: C79.70 Secondary malignant neoplasm of unspecified adrenal gland (principal); C34.90 Malignant neoplasm of unspecified part of unspecified bronchus or lung; J44.9 Chronic obstructive pulmonary disease, unspecified; E78.00 Pure hypercholesterolemia, unspecified; I10 Essential (primary) hypertension; K83.8 Other specified diseases of biliary tract; K21.9 Gastro-esophageal reflux disease without esophagitis; Z20.822 Contact with and (suspected) exposure to COVID-19; E78.5 Hyperlipidemia, unspecified; E03.9 Hypothyroidism, unspecified; Z88.0 Allergy status to penicillin; Z88.7 Allergy status to serum and vaccine; Z88.8 Allergy status to other drugs, medicaments and biological substances; Z88.1 Allergy status to other antibiotic agents; Z91.041 Radiographic dye allergy status; Z79.899 Other long term (current) drug therapy; Z87.891 Personal history of nicotine dependence
CPT/HCPCS: 36415; 71045; 74181; 76376; 80048; 80053; 81003; 82150; 83605; 83690; 83735; 83970; 85025; 86140; 94640; 94760; 97116-GP; 99285; J0610; J1956; J2060; J2405; J7512; J7613; J7626

== ENCOUNTER 2022-07-17 00:59 | Inpatient (IN) | payer OTHER ==
[~2022-07-17] VITALS: Ht 154.9 cm; Wt 56.2 kg
[~2022-07-17 00:59] MED LIST changes: -LEVO-62 PO; -SIMV-341 PO
[2022-07-17 01:16] VITALS: BP_SYST 124
--- NOTE | 2022-07-17 01:30 | NUR ---
PT MOVED TO BED 7 FROM AMBULANCE [facility]
--- NOTE | 2022-07-17 01:35 | NUR ---
BIBA FOR ABNORMAL WBC FROM ROUTINE LAB DRAW AT SNF. WBC ELEVATED 24.5 PT HAS NO COMPLAINTS OF PAIN AT THIS TIME. IS POOR HISTORIAN DUE TO BASELINE CONFUSION PER REPORT. ALSO BEDBOUND AT BASELINE. RESP E/U. GCS14. SKIN PALE, WARM, DRY. PT PLACED ON 2L NC FOR SUPPORT. O2SAT >95%. PT AFEBRILE AT THIS TIME. NAD NOTED AT THIS TIME. PT PENDING MSE. BED LOW IN LOCKED POSITION. SIDE RAILS UP. HX MUSCLE ATROPHY, COPD, HYPOTHYROIDISM, ANEMIA, MALNUTRITION, BENIGN NEOPLASM OF ADRENAL GLAND
--- NOTE | 2022-07-17 01:50 | NUR ---
DR. VU AT BEDSIDE FOR MSE
--- NOTE | 2022-07-17 01:50 | NUR ---
PT NOW STATES SHE IS HAVING BACK PAIN Addendum: 07/17/22 at [email or web address] VU NOTIFIED
[2022-07-17] MEDS ORDERED: CIPROFLOXACIN LACT 400 MG/D5W 200 ML IV ONE (02:15)
[2022-07-17 02:51] LABS: BASOPHILS # (AUTO) 0.1 K/uL (0.0-0.2); BASOPHILS % (AUTO) 0.5 % (0.0-2.0); EOSINOPHILS % (AUTO) 0.1 % (0.0-4.0); HEMATOCRIT 41.9 % (36-48); HEMOGLOBIN 13.5 g/dL (12.0-16.0); LYMPHOCYTES # (AUTO) 3.1 K/uL (1.0-5.5); LYMPHOCYTES % (AUTO) 11.2 % (20.5-51.5); MEAN CORPUSCULAR HEMOGLOBIN 29 pg (27-31); MEAN CORPUSCULAR HGB CONC 32 % (32-36); MEAN CORPUSCULAR VOLUME 89 fL (79.0-98.0); MONOCYTES # (AUTO) 1.1 K/uL (0.0-1.0); MONOCYTES % (AUTO) 3.7 % (1.7-9.3); NEUTROPHILS # (AUTO) 23.8 K/uL (1.8-7.7); NEUTROPHILS % (AUTO) 84.5 % (40.0-70.0); PLATELET COUNT (AUTO) 430 K/uL (130-430); RED CELL DISTRIBUTION WIDTH 14.3 % (9.0-15.0); WHITE BLOOD COUNT (AUTO) 28.2 K/uL (4.8-10.8)
[2022-07-17] MEDS ORDERED: ASPIRIN 325 MG TABLET (ECOTRIN) PO ONE (03:00)
[2022-07-17 03:08] LABS: ANION GAP 3 (5-15); CHLORIDE 99 mmol/L (98-107); CREATININE 1.27 mg/dL (0.55-1.30); GLUCOSE 128 mg/dL (70-99); UREA NITROGEN, BLOOD 26 mg/dL (8-21)
[2022-07-17 03:18] LABS: CALCIUM 13.2 mg/dL (8.4-11.0)
[2022-07-17 03:23] LABS: ALANINE AMINOTRANSFERASE 22 U/L (12-78); ALBUMIN 2.8 g/dL (3.4-4.8); ASPARTATE AMINOTRANSFERASE 14 U/L (10-37); TOTAL BILIRUBIN 0.2 mg/dL (0.0-1.0)
[2022-07-17] MEDS ORDERED: NACL 0.9% 1,000 ML IV ONE ×3 (03:30→10:00)
[2022-07-17 03:34] LABS: BILIRUBIN,URINE NEGATIVE (NEGATIVE); BLOOD, URINE NEGATIVE (NEGATIVE); CLARITY/URINE CLEAR (CLEAR); COLOR,URINE YELLOW (YELLOW); GLUCOSE,URINE NEGATIVE (NEGATIVE); KETONES,URINE NEGATIVE (NEGATIVE); LEUKOCYTE ESTERASE ,URINE NEGATIVE (NEGATIVE); NITRITE, URINE NEGATIVE (NEGATIVE); PROTEIN URINE NEGATIVE (NEGATIVE); UROBILINOGEN,URINE 0.2 (0.2-1.0)
--- NOTE | 2022-07-17 06:01 | NUR ---
WENT TO CT WITH PT
--- NOTE | 2022-07-17 07:20 | NUR ---
REPORT TO DAMEON HERNANDEZ
--- NOTE | 2022-07-17 07:33 | NUR ---
COVID SWAB OBTAINED AND LABELED SENT TO LAB
[2022-07-17] MEDS ORDERED: PIPERACILLIN IV ONE (10:00)
[2022-07-17] MEDS ORDERED: NS IV ONE (10:00)
[2022-07-17] MEDS ORDERED: TAZOBACTAM IV ONE (10:00)
--- NOTE | 2022-07-17 10:02 | NUR ---
Admit bed requested Patient will be admitted to care of . Admitted [facility]/S unit. Diagnosis SEPSIS Inpatient (Yes or No) YES Observation (Yes or No)NO Orientation concerns or request close to nursing station (Yes or No) Covid Status NEGATIVE On vent or bipap NO Isolation requirementsNO Needs a sitter NO From Home (Yes or if No enter name of facility) YES Requires Dialysis (Yes or No)NO Med Rec Completed (Yes of No) NO
[2022-07-17] MEDS ORDERED: MORPHINE 2 MG/ML INJ. SYRINGE IVP PRN (10:30)
[2022-07-17] MEDS ORDERED: MAGNESIUM SULFATE 50 ML IV PRN (10:30)
[2022-07-17] MEDS ORDERED: ONDANSETRON HCL 4 MG/2 ML VIAL IVP PRN (10:30)
[2022-07-17] MEDS ORDERED: POTASSIUM CHLORIDE 20 MEQ TAB.PRT.SR PO PRN (10:30)
[2022-07-17] MEDS ORDERED: DOCUSATE SODIUM 100 MG CAPSULE PO PRN (10:30)
[2022-07-17] MEDS ORDERED: ZOLPIDEM TARTRATE 5 MG TABLET PO PRN (10:30)
[2022-07-17] MEDS ORDERED: NALOXONE HCL 0.4 MG/ML AMP (NARCAN) IVP PRN ×3 (10:30→18:15)
[2022-07-17] MEDS ORDERED: IPRATROPIUM/ALBUTEROL SULFATE 3 ML AMPUL.NEB (DUONEB) INH PRN (10:30)
[2022-07-17] MEDS ORDERED: LORazepam 2 MG/ML VIAL IVP PRN (10:30)
[2022-07-17] MEDS ORDERED: MUPIROCIN 2% TOPICAL OINTMENT 22 GM NS PRN (10:30)
[2022-07-17] MEDS ORDERED: ACETAMINOPHEN 325 MG TABLET PO PRN (10:30)
--- NOTE | 2022-07-17 12:01 | NUR ---
PATIENT REPOSITIONNED IN BED, ASSISTED WITH BEDPAN FOR 300 ML OF YELLOW CLEAR URINE.
--- NOTE | 2022-07-17 14:05 | NUR ---
CONSULTATION PAGED/CALLED Reason for Consultation: [] ATELECTASIS; LUNG MASS Person Who was Notified: [] GAMA Consulting Physician: [] DR MONROE Reinsurance Analyst Specialty: [] PULMO Ordering Physician: [] DR HERNANDEZ
--- NOTE | 2022-07-17 14:13 | NUR ---
REPORT GIVEN AT BEDSIDE TO DAVID GARCIA
--- NOTE | 2022-07-17 14:14 | NUR ---
Patient will be admitted to care of [facility]. Admitted to M/S unit. Will go to room 110 B. Belongings list completed. Complete and up to date summary report printed. SBAR report to be given at bedside with opportunity for questions.
[2022-07-17 16:00] VITALS: BP_SYST 135
--- NOTE | 2022-07-17 19:15 | NUR ---
OPENING NOTE REPORT RECEIVED FROM DAYSHIFT NURSE, PATIENT RECEIVED LYING IN BED, RESTING. NO S/S OF ACUTE DISTRESS. BREATHING EVEN AND UNLABORED. IVF INFUSING WELL, IV SITE PATENT, NO SIGNS OF INFILTRATION OR INFECTION NOTED. CALL LIGHT WITH PATIENT. BED ALARM ON. BED IS LOCKED AND AT LOWEST POSITION. WILL CONTINUE TO MONITOR.
[2022-07-17 20:00] VITALS: BP_SYST 126
[2022-07-17] MEDS: cefTRIAXone 1 GM in D5W 50 ML IV SCH (20:09)
[2022-07-17] MEDS: HEPARIN SODIUM,PORCINE 5,000 UNITS/ML VIAL SUBCUT SCH (20:47)
[2022-07-17] MEDS: MORPHINE 2 MG/ML INJ. SYRINGE IVP PRN (20:47)
--- NOTE | 2022-07-17 23:00 | NUR ---
BEDPAN PATIENT REQUESTED FOR BEDPAN, PROVIDED BY RN. ALL NEEDS MET. WILL MONITOR.
[2022-07-17] MEDS: NACL 0.9% 1,000 ML IV SCH (23:47)
[2022-07-18 00:10] VITALS: BP_SYST 117
--- NOTE | 2022-07-18 03:08 | NUR ---
ROUNDS PATIENT RESTING. ALL NEEDS MET. WILL MONITOR.
[2022-07-18] MEDS: MORPHINE 2 MG/ML INJ. SYRINGE IVP PRN (03:40)
[2022-07-18] MEDS: LEVOTHYROXINE SODIUM 0.088 MG TABLET PO SCH (06:07)
[2022-07-18] MEDS: NACL 0.9% 1,000 ML IV SCH ×2 (06:08→15:57)
--- NOTE | 2022-07-18 06:38 | NUR ---
CLOSING NOTE PATIENT IN BED, RESTING. NO S/S OF ACUTE DISTRESS. BREATHING EVEN AND UNLABORED. HOB RAISED, NASAL CANULA ATTACHED PROPERLY, ON 2L OF OXYGEN. IVF INFUSING WELL. IV SITE PATENT, NO SIGNS OF INFILTRATION OR INFECTION NOTED. ALL NEEDS MET THROUGHOUT SHIFT. FALL, SAFETY PRECAUTIONS MAINTAINED. WILL MONITOR UNTIL PATIENT CARE IS ENDORSED TO ONCOMING DAYSHIFT NURSE.
[2022-07-18 07:03] LABS: BASOPHILS # (AUTO) 0.1 K/uL (0.0-0.2); BASOPHILS % (AUTO) 0.6 % (0.0-2.0); EOSINOPHILS # (AUTO) 0.6 K/uL (0.0-0.4); EOSINOPHILS % (AUTO) 2.6 % (0.0-4.0); HEMATOCRIT 37.5 % (36-48); HEMOGLOBIN 12.3 g/dL (12.0-16.0); LYMPHOCYTES # (AUTO) 3.3 K/uL (1.0-5.5); LYMPHOCYTES % (AUTO) 13.9 % (20.5-51.5); MEAN CORPUSCULAR HEMOGLOBIN 29 pg (27-31); MEAN CORPUSCULAR HGB CONC 33 % (32-36); MEAN CORPUSCULAR VOLUME 90 fL (79.0-98.0); MONOCYTES # (AUTO) 1.2 K/uL (0.0-1.0); MONOCYTES % (AUTO) 5.2 % (1.7-9.3); NEUTROPHILS # (AUTO) 18.2 K/uL (1.8-7.7); NEUTROPHILS % (AUTO) 77.7 % (40.0-70.0); PLATELET COUNT (AUTO) 401 K/uL (130-430); RED BLOOD CELL COUNT(AUTO) 4.18 MIL/uL (4.2-6.2); RED CELL DISTRIBUTION WIDTH 14.3 % (9.0-15.0); WHITE BLOOD COUNT (AUTO) 23.4 K/uL (4.8-10.8)
[2022-07-18 07:17] LABS: ANION GAP 5 (5-15); CHLORIDE 102 mmol/L (98-107); CREATININE 1.19 mg/dL (0.55-1.30); GLUCOSE 93 mg/dL (70-99); UREA NITROGEN, BLOOD 16 mg/dL (8-21)
[2022-07-18 08:00] VITALS: BP_SYST 112
--- NOTE | 2022-07-18 08:21 | NUR ---
CONSULTATION PAGED/CALLED Reason for Consultation: [] HYPERCALCEMIA; METS Person Who was Notified: [] SUJATHA Consulting Physician: [] KERI PURVIS Maintenance Technician 2Nd Shift Specialty: [] NEPHRO Ordering Physician: [] DR HERNANDEZ
[2022-07-18] MEDS: HYDROcodone/ACETAMIN 10-325 MG TAB PO PRN ×2 (10:00→23:47)
[2022-07-18] MEDS: METOPROLOL SUCCINATE 50 MG TAB.SR.24H (TOPROL XL) PO SCH (10:04)
[2022-07-18] MEDS: HEPARIN SODIUM,PORCINE 5,000 UNITS/ML VIAL SUBCUT SCH ×2 (10:06→21:47)
[2022-07-18 11:39] VITALS: BP_SYST 104
[2022-07-18 12:00] VITALS: BP_SYST 112
[2022-07-18] MEDS: cefTRIAXone 1 GM in D5W 50 ML IV SCH (15:56)
[2022-07-18 16:00] VITALS: BP_SYST 116; BP_SYST 117
--- NOTE | 2022-07-18 19:30 | NUR ---
Pt. in bed, awake, alert x3. Denies sob, pain, refusing to have ivf infused at this time. Need for a new iv site is needed, pt. is refusing . Call light in reach, no distress.
[2022-07-18 20:00] VITALS: BP_SYST 128
--- NOTE | 2022-07-19 00:03 | NUR ---
Pt. medicated for pain, still refusing new iv start, call light in reach, vss.
[2022-07-19 01:29] VITALS: BP_SYST 129
--- NOTE | 2022-07-19 05:55 | NUR ---
Pt. needs met this shift, vss. New iv site started to right ac, 22 g. Pt. tolerated well. Medicated for pain prn with good results, call light and [address]
[2022-07-19] MEDS: LEVOTHYROXINE SODIUM 0.088 MG TABLET PO SCH (06:18)
[2022-07-19 08:19] LABS: BASOPHILS # (AUTO) 0.1 K/uL (0.0-0.2); BASOPHILS % (AUTO) 0.6 % (0.0-2.0); EOSINOPHILS # (AUTO) 1.1 K/uL (0.0-0.4); EOSINOPHILS % (AUTO) 4.7 % (0.0-4.0); HEMATOCRIT 36.4 % (36-48); HEMOGLOBIN 11.8 g/dL (12.0-16.0); LYMPHOCYTES # (AUTO) 3.4 K/uL (1.0-5.5); LYMPHOCYTES % (AUTO) 14.5 % (20.5-51.5); MEAN CORPUSCULAR HEMOGLOBIN 29 pg (27-31); MEAN CORPUSCULAR HGB CONC 32 % (32-36); MEAN CORPUSCULAR VOLUME 90 fL (79.0-98.0); MONOCYTES # (AUTO) 1.2 K/uL (0.0-1.0); NEUTROPHILS # (AUTO) 17.4 K/uL (1.8-7.7); NEUTROPHILS % (AUTO) 75.2 % (40.0-70.0); PLATELET COUNT (AUTO) 387 K/uL (130-430); RED BLOOD CELL COUNT(AUTO) 4.05 MIL/uL (4.2-6.2); RED CELL DISTRIBUTION WIDTH 14.5 % (9.0-15.0); WHITE BLOOD COUNT (AUTO) 23.2 K/uL (4.8-10.8)
[2022-07-19 08:31] LABS: ANION GAP 4 (5-15); CALCIUM 10.4 mg/dL (8.4-11.0); CHLORIDE 102 mmol/L (98-107); CREATININE 1.05 mg/dL (0.55-1.30); GLUCOSE 102 mg/dL (70-99); UREA NITROGEN, BLOOD 16 mg/dL (8-21)
--- NOTE | 2022-07-19 10:15 | NUR ---
Dietitian Recommendations * Consider liberalizing diet order as pt is not eating * Rec Ensure HP BID (provides 700kcal, 40 g protein) * Send snacks in between meals; RD noted in [employer] GS, MPH, RD Please refer to RD Assessment for further details Addendum: 07/19/22 at [address] Amended: Links added.
--- NOTE | 2022-07-19 10:24 | NUR ---
CONSULTATION PAGED/CALLED Reason for Consultation: POSS SEPSIS Person Who was Notified: BRICE Consulting Physician: JENNIFER PENA Ordering Physician: BUFFY HERNANDEZ
[2022-07-19 12:25] VITALS: BP_SYST 114
--- NOTE | 2022-07-19 13:25 | NUR ---
CM: Booked Medic 1 with Jonas given next available picker and packer time at 5 pm. RN Quang made aware. DC package placed in nursing unit.
[2022-07-19] MEDS: METOPROLOL SUCCINATE 50 MG TAB.SR.24H (TOPROL XL) PO SCH (13:47)
[2022-07-19] MEDS: NACL 0.9% 1,000 ML IV SCH ×2 (13:48→13:57)
[2022-07-19] MEDS: HEPARIN SODIUM,PORCINE 5,000 UNITS/ML VIAL SUBCUT SCH (13:51)
[2022-07-19] MEDS: cefTRIAXone 1 GM in D5W 50 ML IV SCH (13:58)
[2022-07-19] MEDS ORDERED: metroNIDAZOLE 500 mg/NS 100 ML IV SCH (14:00)
[2022-07-19 16:20] VITALS: BP_SYST 102
[2022-07-19] MEDS: HYDROcodone/ACETAMIN 10-325 MG TAB PO PRN (17:35)
== END 2022-07-19 17:36 | DRG 871 ==
LOC: SED 00:59 → SMU 09:48
PROVIDERS: ADMIT General Practice; ATTEND General Practice
DX: A41.9 Sepsis, unspecified organism (principal); J18.9 Pneumonia, unspecified organism; N17.0 Acute kidney failure with tubular necrosis; J44.0 Chronic obstructive pulmonary disease with (acute) lower respiratory infection; E44.0 Moderate protein-calorie malnutrition; G93.40 Encephalopathy, unspecified; I10 Essential (primary) hypertension; E03.9 Hypothyroidism, unspecified; F41.9 Anxiety disorder, unspecified; Z20.822 Contact with and (suspected) exposure to COVID-19; E83.52 Hypercalcemia; Z68.23 Body mass index [BMI] 23.0-23.9, adult; Z88.7 Allergy status to serum and vaccine; Z88.8 Allergy status to other drugs, medicaments and biological substances; Z88.1 Allergy status to other antibiotic agents; Z91.041 Radiographic dye allergy status
CPT/HCPCS: 36415; 71045; 71250-TC; 76376; 80048; 80053; 81003; 83036; 83605; 83735; 84484; 85025; 87040; 87081; 87086; 93005; 96361; 96365; 97110-GP; 97163-GP; 97530-GP; 99291; 99292; J0696; J0744; J1644; J2270; J3490; J7030; J7060